=== PATIENT | female | born 1995 | race Caucasian/White ===

== ENCOUNTER 2020-07-13 22:28 | Inpatient (IN) | payer MEDICAID ==
[2020-07-14] MEDS ORDERED: Carboprost Tromethamine 250 MCG/1 ML Amp IM PRN ×2 (00:18)
[2020-07-14] MEDS ORDERED: Simethicone 80 MG Tab.Chew PO PRN (00:18)
[2020-07-14] MEDS ORDERED: Ondansetron 4 MG/2 ML SDV IVPUSH PRN (00:18)
[2020-07-14] MEDS ORDERED: Sodium Chloride 0.9% 10 ML Syringe FLUSH PRN (00:18)
[2020-07-14] MEDS ORDERED: Acetaminophen 325 MG Tab PO PRN (00:18)
[2020-07-14] MEDS ORDERED: Misoprostol 400 MCG (4 X 100 MCG TAB) RECTAL PRN ×2 (00:18)
[2020-07-14] MEDS ORDERED: Oxytocin 10 Units/1 ML SDV IM PRN (00:18)
[2020-07-14] MEDS ORDERED: Benzocaine/Menthol 20%-0.5% Spray 56 GM Canister TOP PRN (00:18)
[2020-07-14] MEDS ORDERED: Zolpidem 5 MG Tab PO PRN (00:18)
[2020-07-14] MEDS ORDERED: Lidocaine 1% 30 ML SDV INJECT PRN (00:18)
[2020-07-14] MEDS ORDERED: Tranexamic Acid 1,000 MG in Sodium Chloride 0.9% 100 ML IV PRN ×4 (00:18)
[2020-07-14] MEDS ORDERED: Lactated Ringers 1,000 ML IV ONE (00:18)
[2020-07-14] MEDS ORDERED: Methylergonovine 0.2 MG/1 ML Amp IM PRN (00:18)
[2020-07-14] MEDS ORDERED: Lactated Ringers 1,000 ML IV SCH (00:30)
[2020-07-14] MEDS ORDERED: Oxytocin/Normal Saline 30 UNIT/500 ML BAG IV SCH (00:30)
[2020-07-14 01:36] LABS: ANION GAP 13.7 mEq/L (7-13); CHLORIDE,CL 102 mmol/L (98-107); SODIUM,NA 136 mmol/L (136-145)
--- NOTE | 2020-07-14 03:12 | HP ---
CHIEF COMPLAINT: "I am in labor." HISTORY OF PRESENT ILLNESS: Ms. De La Vega is a 24-year-old 2, para 1-0- 0-1 female. Last menstrual period unsure. EDC 07/23/2020 by 2nd trimester ultrasound. EGA 38-4/7 weeks' gestation, who reports to Labor and Delivery at [facility] in [facility]. She has been latia every 2 to 3 minutes since 8 p.m. last night. She denies any vaginal bleeding, leakage of fluid. No nausea, vomiting, diarrhea. No fever or chills. No hematochezia, hematemesis, hematuria. No dysuria, frequency, urgency with urination. No leg pain, leg edema. Her only issue in , she did have hypertension. She was on some medication early in the , labetalol and then she was taken off as her blood pressures were doing so well. PAST MEDICAL HISTORY: Positive for anxiety, depression, hypertension. No thyroid disease, heart disease, seizure disorder, thromboembolic disorder, asthma, diabetes, or breast lesions. SOCIAL HISTORY: She is single. She denies any tobacco use, alcohol use, or illicit drug use. She denies any domestic violence issues. She feels safe at home. 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 FAMILY HISTORY: Positive for hypertension, thyroid disease, breast cancer. MEDICATIONS: vitamins, Zoloft 200 mg a day. She was on labetalol early in the , which was stopped last month. PAST SURGICAL HISTORY: None. OBSTETRICAL HISTORY: February 2016, delivery of a viable male at 40 weeks gestation via normal spontaneous vaginal delivery. ALLERGIES: No known drug allergies. REVIEW OF SYSTEMS: All pertinent positive and negative review of systems per HPI. All other systems reviewed are negative. A 10-point review of systems discussed with the patient. She has no issues. PHYSICAL EXAMINATION: General: Well-developed, well-nourished female, in no acute distress. Vital Signs: Stable, afebrile. Blood pressure is in the high 130s/90s. HEENT: Unremarkable. Neck: Supple. Without adenopathy. No thyromegaly. Lungs: Clear to auscultation. No wheezing, rhonchi, or rales noted. Cardiovascular: Regular rate and rhythm without murmurs. Abdomen: Gravid, nontender. Fundal height 38 cm. heart tones 130s to 140s. Contractions every 2 minutes. Vertex presentation. Cervix: 4 cm dilated, 80% effaced, -2 station. Bulging bag of sow. Artificial rupture of membranes with clear fluid noted. Back: No CVA tenderness. Extremities: No edema, erythema, or tenderness noted. LABORATORY DATA: Blood type O positive. Antibody screen negative, rubella positive, group B Strep negative, hepatitis B surface antigen negative, hepatitis C negative, HIV negative, syphilis nonreactive. ASSESSMENT: 1. 38-4/7 weeks' intrauterine . 2. History of chronic hypertension 3. Active labor. 4. Artificial rupture of membranes with clear fluid. PLAN: 1. Expect vaginal delivery. 2. All questions answered. 3. The patient can have IV pain medications or intrathecal if she desires. 4. I did order an a CBC, CMP, LDH, protein-creatinine ratio for baseline in case her blood pressures worsen through the delivery process. 5. All questions answered. [facility] /[id number] LYNDSAY
[2020-07-14] MEDS ORDERED: EPINEPHrine 1 MG/1 ML Amp ONE (09:02)
[2020-07-14] MEDS ORDERED: fentaNYL 100 MCG/2 ML SDV ONE (09:02)
[2020-07-14] MEDS ORDERED: Sodium Bicarbonate 4.2% 2.5 MEQ/5 ML SDV ONE (09:03)
--- NOTE | 2020-07-14 09:25 | PCM.SN.2 ---
- Free Text/Narrative Note: Intrathecal. Sitting position, sterile prep and drape. 1% lidocaine x 1 to L2 L3 interspace x1. 24 ga pencan x 1. Pos CSF, neg heme, neg parasthesia. 0.1 ml pf 1:1000 epi, 20 mcg pf sufenta, 30 mcg pf fentanyl, 0.4 ml pf NS and 6 mg of 0.75% pf marcaine injected after CSF aspiration. Pt to L lateral position. Procedure time 0905 to 0935
--- NOTE | 2020-07-14 09:50 | PCM.PNLD ---
Labor Progress Note - VS & Meds Vital Signs: Last Vital Signs Temp 96.3 F L 07/14/20 07:29 Pulse 98 07/14/20 07:29 Resp 16 07/14/20 05:35 BP 136/80 07/14/20 07:29 Pulse Ox Active Medications: Current Medications Acetaminophen (Tylenol) 650 mg PO Q4H PRN PRN Reason: Pain (Mild 1-3) and fever Acetaminophen (Tylenol) 650 mg PO Q6H PRN PRN Reason: mild pain or fever Benzocaine/Menthol (Dermoplast Pain Relief [place]) 0 gm TOP Q4H PRN PRN Reason: Perineal comfort measures Carboprost Tromethamine (Hemabate Ds) 250 mcg IM ASDIRECTED PRN PRN Reason: HEMORRHAGE Carboprost Tromethamine (Hemabate Ds) 250 mcg IM ASDIRECTED PRN PRN Reason: Excessive vaginal bleeding Docusate Sodium (Colace) 100 mg PO BID PRN PRN Reason: Constipation Tranexamic Acid 1,000 mg/ (Sodium Chloride) 110 mls @ 660 mls/hr IV ONETIME PRN PRN Reason: Bleeding Oxytocin/Sodium Chloride (Pitocin In Ns 30 Unit/500 Ml) 30 unit in 500 mls @ 2 mls/hr IV TITRATE MERRICK; Protocol Last Admin: 07/14/20 09:34 Dose: 2 munits/min, 2 mls/hr Documented by: Lactated Ringer's (Ringers, Lactated) 1,000 mls @ 125 mls/hr IV ASDIRECTED MERRICK Last Admin: 07/14/20 09:07 Dose: 125 mls/hr Documented by: Ibuprofen (Motrin) 800 mg PO Q8H PRN PRN Reason: Mild Pain or Fever Lidocaine HCl (Xylocaine-Mpf 1%) 30 ml INJECT ASDIRECTED PRN PRN Reason: Perineal Repair Methylergonovine Maleate (Methergine) 0.2 mg IM ASDIRECTED PRN PRN Reason: Hemorrhage Misoprostol (Cytotec) 800 mcg RECTAL ASDIRECTED PRN PRN Reason: Hemorrhage Misoprostol (Cytotec) 800 mcg RECTAL ONETIME PRN PRN Reason: Hemorrhage Ondansetron HCl (Zofran) 4 mg IVPUSH Q4H PRN PRN Reason: Nausea/Vomiting Last Admin: 07/14/20 09:00 Dose: 4 mg Documented by: Oxytocin (Pitocin) 10 unit IM ONETIME PRN PRN Reason: Bleeding Prenat Multivit/[place]/Iron/Folic Ac ( Plus Iron) 1 each PO DAILY MERRICK Simethicone (Simethicone) 80 mg PO Q4H PRN PRN Reason: Gas Sodium Chloride (Saline Flush) 10 ml FLUSH ASDIRECTED PRN PRN Reason: Keep Vein Open Witch Merle (Medi-Pads) 1 each TOP Q4HR PRN PRN Reason: Perineal Comfort Measure Zolpidem Tartrate (Ambien) 5 mg PO BEDTIME PRN PRN Reason: Insomnia Discontinued Medications Epinephrine HCl (Adrenalin) Confirm Administered Dose 1 mg .ROUTE .STK-MED ONE Stop: 07/14/20 09:03 Fentanyl (Sublimaze) Confirm Administered Dose 100 mcg .ROUTE .STK-MED ONE Stop: 07/14/20 09:03 Lactated Ringer's (Ringers, Lactated) 1,000 mls @ 125 mls/hr IV BOLUS ONE Stop: 07/14/20 08:17 Last Admin: 07/14/20 08:30 Dose: 125 mls/hr Documented by: Sodium Bicarbonate (Sodium Bicarbonate 4.2%) Confirm Administered Dose 2.5 meq .ROUTE .STK-MED ONE Stop: 07/14/20 09:04 Sufentanil Citrate (Sufenta) Confirm Administered Dose 50 mcg .ROUTE .STK-MED ONE Stop: 07/14/20 09:04 - Uterine Contractions Uterine Monitoring Mode: External [place] Contraction Frequency (min): 3-5 Contraction Duration (sec): 70-90 Contraction Intensity: Moderate Uterine Resting Tone: Soft - Monitoring Monitor Mode: External Ultrasound Heart Rate (FHR) Variability: Moderate (6-25 bmp) Accelerations: Present, 15x15 Decelerations: None Strip Review: Category I - Vaginal Exam Dilation (cm): 7 Effacement (Percent): 100 Station: -1 Cervical Position: Anterior Sterile Vaginal Exam Performed By: Rodrick Bentley - Labor Progress (Free Text) Labor Progress: Patient comfortable with intrathecal anesthesia FHT's 130's to 140's + acels. + Bloody show noted.
--- NOTE | 2020-07-14 11:10 | PCM.DEL ---
L & D Note - General Info Date of Service: 07/14/20 (1052) Mother's Due Date: 07/23/20 - Delivery Note Labor: Augmented by ARM, Augmented by Oxytocin Delivery Outcome: Livebirth Infant Delivery Method: Spontaneous Vaginal Delivery-Single Infant Delivery Mode: Spontaneous Presentation: Vertex Nuchal Cord: Present, Reduced Anesthesia Type: Intrathecal Amniotic Fluid Description: Clear Episiotomy Type: None Laceration: None Placenta: Intact, Spontaneous Cord: 3 Vessels Estimated Blood Loss: 100 Resuscitation Needed: No : Suctioned, Bulb Syringe, Stimulated, Warmed, Lamar Used, Warmer Used Provider: Rodrick Bentley Score 1 min: 6 Score 5 min: 8 Delivery Comments (Free Text/Narrative):: Viable female OA over intact perineum Cord 3 Vessel around the neck X 1 Placenta delivered by simple expression intact. Labia, vagina and cervix inspected and intact. Mother and infant in good condition. Viable female infant Weight- 8 lbs 3 oz Length- 19 1/2 's 6 and 8 at 1 minute and 5 minutes respectively. - General Info Date of Service: 07/14/20 () Functional Status: Reports: Pain Controlled, Tolerating Diet, Ambulating - Review of Systems General: Reports: No Symptoms HEENT: Reports: No Symptoms Pulmonary: Reports: No Symptoms Cardiovascular: Reports: No Symptoms Gastrointestinal: Reports: No Symptoms Genitourinary: Reports: No Symptoms Musculoskeletal: Reports: No Symptoms Skin: Reports: No Symptoms Neurological: Reports: No Symptoms Psychiatric: Reports: No Symptoms - Patient Data Vitals - Most Recent: Last Vital Signs Temp 96.3 F L 07/14/20 07:29 Pulse 98 07/14/20 07:29 Resp 16 07/14/20 05:35 BP 136/80 07/14/20 07:29 Pulse Ox Weight - Most Recent: 216 lb Lab Results Last 24 Hours: Laboratory Results - last 24 hr 07/14/20 07/14/20 07/14/20 Range/Units 00:20 00:45 00:50 WBC 10.9 H (5.0-10.0) 10^3/uL RBC 4.05 L (4.2-5.4) 10^6/uL Hgb 12.3 (12.0-16.0) g/dL Hct 35.7 L (37.0-47.0) % MCV 88.1 (80-100) fL MCH 30.4 (27.0-34.0) pg MCHC 34.5 (33.0-35.0) g/dL Plt Count 161 (150-450) 10^3/uL Sodium (136-145) mmol/L Potassium (3.5-5.1) mmol/L Chloride (98-107) mmol/L Carbon Dioxide (21-32) mmol/L Anion Gap (7-13) mEq/L BUN (7-18) mg/dL Creatinine (0.55-1.02) mg/dL Est Cr Clr Drug Dosing mL/min Estimated GFR (MDRD) BUN/Creatinine Ratio (No establ ref range) Glucose (74-99) mg/dL Calcium (8.5-10.1) mg/dL Total Bilirubin (0.2-1.0) mg/dL AST (15-37) U/L ALT (14-59) U/L Alkaline Phosphatase (46-116) U/L Lactate Dehydrogenase (81-234) U/L Total Protein (6.4-8.2) g/dL Albumin (3.4-5.0) g/dL Globulin Albumin/Globulin Ratio Ur Random Creatinine 201.59 (No establ ref range) mg/dL U Random Total Protein 36.2 H (0.0-11.9) mg/dL Protein/Creatinin Ratio 179.6 H (<150.0) mg/g COVID-19 (LUIS FERNANDO) Negative (NEGATIVE) 07/14/20 Range/Units 00:50 WBC (5.0-10.0) 10^3/uL RBC (4.2-5.4) 10^6/uL Hgb (12.0-16.0) g/dL Hct (37.0-47.0) % MCV (80-100) fL MCH (27.0-34.0) pg MCHC (33.0-35.0) g/dL Plt Count (150-450) 10^3/uL Sodium 136 (136-145) mmol/L Potassium 3.7 (3.5-5.1) mmol/L Chloride 102 (98-107) mmol/L Carbon Dioxide 24 (21-32) mmol/L Anion Gap 13.7 H (7-13) mEq/L BUN 8 (7-18) mg/dL Creatinine 0.88 (0.55-1.02) mg/dL Est Cr Clr Drug Dosing 102.13 mL/min Estimated GFR (MDRD) > 60 BUN/Creatinine Ratio 9.1 (No establ ref range) Glucose 80 (74-99) mg/dL Calcium 8.5 (8.5-10.1) mg/dL Total Bilirubin 0.3 (0.2-1.0) mg/dL AST 14 L (15-37) U/L ALT 16 (14-59) U/L Alkaline Phosphatase 168 H (46-116) U/L Lactate Dehydrogenase 133 (81-234) U/L Total Protein 6.8 (6.4-8.2) g/dL Albumin 2.8 L (3.4-5.0) g/dL Globulin 4.0 Albumin/Globulin Ratio 0.70 Ur Random Creatinine (No establ ref range) mg/dL U Random Total Protein (0.0-11.9) mg/dL Protein/Creatinin Ratio (<150.0) mg/g COVID-19 (LUIS FERNANDO) (NEGATIVE) Med Orders - Current: Current Medications Acetaminophen (Tylenol) 650 mg PO Q4H PRN PRN Reason: Pain (Mild 1-3) and fever Acetaminophen (Tylenol) 650 mg PO Q6H PRN PRN Reason: mild pain or fever Benzocaine/Menthol (Dermoplast Pain Relief [place]) 0 gm TOP Q4H PRN PRN Reason: Perineal comfort measures Carboprost Tromethamine (Hemabate Ds) 250 mcg IM ASDIRECTED PRN PRN Reason: HEMORRHAGE Carboprost Tromethamine (Hemabate Ds) 250 mcg IM ASDIRECTED PRN PRN Reason: Excessive vaginal bleeding Docusate Sodium (Colace) 100 mg PO BID PRN PRN Reason: Constipation Tranexamic Acid 1,000 mg/ (Sodium Chloride) 110 mls @ 660 mls/hr IV ONETIME PRN PRN Reason: Bleeding Oxytocin/Sodium Chloride (Pitocin In Ns 30 Unit/500 Ml) 30 unit in 500 mls @ 2 mls/hr IV TITRATE MERRICK; Protocol Last Admin: 07/14/20 09:34 Dose: 2 munits/min, 2 mls/hr Documented by: Lactated Ringer's (Ringers, Lactated) 1,000 mls @ 125 mls/hr IV ASDIRECTED MERRICK Last Admin: 07/14/20 09:07 Dose: 125 mls/hr Documented by: Ibuprofen (Motrin) 800 mg PO Q8H PRN PRN Reason: Mild Pain or Fever Lidocaine HCl (Xylocaine-Mpf 1%) 30 ml INJECT ASDIRECTED PRN PRN Reason: Perineal Repair Methylergonovine Maleate (Methergine) 0.2 mg IM ASDIRECTED PRN PRN Reason: Hemorrhage Misoprostol (Cytotec) 800 mcg RECTAL ASDIRECTED PRN PRN Reason: Hemorrhage Misoprostol (Cytotec) 800 mcg RECTAL ONETIME PRN PRN Reason: Hemorrhage Ondansetron HCl (Zofran) 4 mg IVPUSH Q4H PRN PRN Reason: Nausea/Vomiting Last Admin: 07/14/20 09:00 Dose: 4 mg Documented by: Oxytocin (Pitocin) 10 unit IM ONETIME PRN PRN Reason: Bleeding Prenat Multivit/[place]/Iron/Folic Ac ( Plus Iron) 1 each PO DAILY [facility] Simethicone (Simethicone) 80 mg PO Q4H PRN PRN Reason: Gas Sodium Chloride (Saline Flush) 10 ml FLUSH ASDIRECTED PRN PRN Reason: Keep Vein Open Witch Merle (Medi-Pads) 1 each TOP Q4HR PRN PRN Reason: Perineal Comfort Measure Zolpidem Tartrate (Ambien) 5 mg PO BEDTIME PRN PRN Reason: Insomnia Discontinued Medications Epinephrine HCl (Adrenalin) Confirm Administered Dose 1 mg .ROUTE .STK-MED ONE Stop: 07/14/20 09:03 Fentanyl (Sublimaze) Confirm Administered Dose 100 mcg .ROUTE .STK-MED ONE Stop: 07/14/20 09:03 Lactated Ringer's (Ringers, Lactated) 1,000 mls @ 125 mls/hr IV BOLUS ONE Stop: 07/14/20 08:17 Last Admin: 07/14/20 08:30 Dose: 125 mls/hr Documented by: Sodium Bicarbonate (Sodium Bicarbonate 4.2%) Confirm Administered Dose 2.5 meq .ROUTE .STK-MED ONE Stop: 07/14/20 09:04 Sufentanil Citrate (Sufenta) Confirm Administered Dose 50 mcg .ROUTE .STK-MED ONE Stop: 07/14/20 09:04 - Exam General: Alert, Oriented, Cooperative HEENT: Pupils Equal, Pupils Reactive Neck: Supple Lungs: Clear to Auscultation, Normal Respiratory Effort Cardiovascular: Regular Rate, Regular Rhythm GI/Abdominal Exam: Normal Bowel Sounds Psy/Mental Status: Alert, Normal Affect, Normal Mood - Problem List Review Problem List Initiated/Reviewed/Updated: Yes - My Orders Last 24 Hours: My Active Orders 07/14/20 00:18 Acetaminophen [TylenoL] 650 mg PO Q4H PRN Acetaminophen [TylenoL] 650 mg PO Q6H PRN Benzocaine/Menthol [Dermoplast Pain Relief [place]] See Dose Instructions TOP Q4H PRN Carboprost Tromethamine [Hemabate DS] 250 mcg IM ASDIRECTED PRN Carboprost Tromethamine [Hemabate DS] 250 mcg IM ASDIRECTED PRN Docusate Sodium [Colace] 100 mg PO BID PRN Ibuprofen [Motrin] 800 mg PO Q8H PRN Lidocaine 1% [Xylocaine-MPF 1%] 30 ml INJECT ASDIRECTED PRN Methylergonovine [Methergine] 0.2 mg IM ASDIRECTED PRN Ondansetron [Zofran] 4 mg IVPUSH Q4H PRN Oxytocin [Pitocin] 10 unit IM ONETIME PRN Simethicone 80 mg PO Q4H PRN Sodium Chloride 0.9% [Saline Flush] 10 ml FLUSH ASDIRECTED PRN Tranexamic Acid [Cyklokapron] 1,000 mg Sodium Chloride 0.9% [Normal Saline] 100 ml IV ONETIME Zolpidem [Ambien] 5 mg PO BEDTIME PRN miSOPROStoL [Cytotec] 800 mcg RECTAL ASDIRECTED PRN miSOPROStoL [Cytotec] 800 mcg RECTAL ONETIME PRN witch Merle [Medi-Pads] 1 each TOP Q4HR PRN Resuscitation Status Routine 07/14/20 00:19 Patient Status [ADT] Routine Communication Order [RC] ASDIRECTED Notify Provider Vital Signs OB [RC] ASDIRECTED Notify Provider [RC] PRN Up ad Kristi [RC] ASDIRECTED Vital Signs [RC] , Assess Lochia [WOMSER] Per Unit Routine Assess Uterine Involution [WOMSER] Per Unit Routine Breast Pump [WOMSER] Per Unit Routine Ice Therapy [OM.PC] Per Unit Routine Perineal Care [OM.PC] Per Unit Routine Saline Lock Insert [OM.PC] Routine Saline Lock Insert [OM.PC] Urgent Sitz Bath [OM.PC] Per Unit Routine 07/14/20 00:22 Pump Management, Intrathecal [RC] ASDIRECTED 07/14/20 00:30 Lactated Ringers [Ringers, Lactated] 1,000 ml IV ASDIRECTED Oxytocin/Normal Saline [Pitocin in NS 30 UNIT/500 ML] 30 unit in 500 ml IV TITRATE 07/14/20 Breakfast Regular Diet [DIET] 07/14/20 09:00 Vit with Ca/FA/Iron [ Plus Iron] 1 each PO DAILY 07/14/20 Lunch Regular Diet [DIET] 07/14/20 Dinner Regular Diet [DIET] 07/15/20 06:00 CBC W/O DIFF,HEMOGRAM [HEME] Routine
[2020-07-14] MEDS: Prenatal Multivitamin with Calcium/Folic Acid/Iron Tab PO SCH (15:34)
[2020-07-14] MEDS: Ibuprofen 800 MG Tab PO PRN (18:22)
[2020-07-14] MEDS: Docusate Sodium 100 MG Cap PO PRN (21:30)
[2020-07-14] MEDS: Acetaminophen 325 MG Tab PO PRN (21:30)
[2020-07-15] MEDS: Ibuprofen 800 MG Tab PO PRN (02:34)
--- NOTE | 2020-07-15 08:32 | PCM.PNPP ---
- General Info Date of Service: 07/15/20 (PPD#1 S/P ) Functional Status: Reports: Pain Controlled, Tolerating Diet, Ambulating, Urinating - Review of Systems General: Reports: No Symptoms HEENT: Reports: No Symptoms Pulmonary: Reports: No Symptoms Cardiovascular: Reports: No Symptoms Gastrointestinal: Reports: No Symptoms Genitourinary: Reports: No Symptoms Musculoskeletal: Reports: No Symptoms Skin: Reports: No Symptoms Neurological: Reports: No Symptoms Psychiatric: Reports: No Symptoms - General Info Date of Service: 07/15/20 (PPD # 1 ) - Patient Data Vital Signs - Most Recent: Last Vital Signs Temp 98.4 F 07/14/20 20:00 Pulse 93 07/14/20 20:00 Resp 18 07/14/20 20:00 BP 136/84 07/14/20 20:00 Pulse Ox 100 07/14/20 20:00 Weight - Most Recent: 216 lb Lab Results - Last 24 Hours: Laboratory Results - last 24 hr 07/15/20 Range/Units 07:56 WBC 9.3 (5.0-10.0) 10^3/uL RBC 3.33 L (4.2-5.4) 10^6/uL Hgb 10.2 L D (12.0-16.0) g/dL Hct 30.2 L (37.0-47.0) % MCV 90.7 (80-100) fL MCH 30.6 (27.0-34.0) pg MCHC 33.8 (33.0-35.0) g/dL Plt Count 140 L (150-450) 10^3/uL Med Orders - Current: Current Medications Acetaminophen (Tylenol) 650 mg PO Q4H PRN PRN Reason: Pain (Mild 1-3) and fever Last Admin: 07/14/20 21:30 Dose: 650 mg Documented by: Acetaminophen (Tylenol) 650 mg PO Q6H PRN PRN Reason: mild pain or fever Benzocaine/Menthol (Dermoplast Pain Relief [place]) 0 gm TOP Q4H PRN PRN Reason: Perineal comfort measures Carboprost Tromethamine (Hemabate Ds) 250 mcg IM ASDIRECTED PRN PRN Reason: HEMORRHAGE Carboprost Tromethamine (Hemabate Ds) 250 mcg IM ASDIRECTED PRN PRN Reason: Excessive vaginal bleeding Docusate Sodium (Colace) 100 mg PO BID PRN PRN Reason: Constipation Last Admin: 07/14/20 21:30 Dose: 100 mg Documented by: Tranexamic Acid 1,000 mg/ (Sodium Chloride) 110 mls @ 660 mls/hr IV ONETIME PRN PRN Reason: Bleeding Oxytocin/Sodium Chloride (Pitocin In Ns 30 Unit/500 Ml) 30 unit in 500 mls @ 2 mls/hr IV TITRATE MERRICK; Protocol Last Titration: 07/14/20 13:00 Dose: Infused Documented by: Lactated Ringer's (Ringers, Lactated) 1,000 mls @ 125 mls/hr IV ASDIRECTED MERRICK Last Infusion: 07/14/20 13:00 Dose: 0 mls/hr Documented by: Ibuprofen (Motrin) 800 mg PO Q8H PRN PRN Reason: Mild Pain or Fever Last Admin: 07/15/20 02:34 Dose: 800 mg Documented by: Lidocaine HCl (Xylocaine-Mpf 1%) 30 ml INJECT ASDIRECTED PRN PRN Reason: Perineal Repair Methylergonovine Maleate (Methergine) 0.2 mg IM ASDIRECTED PRN PRN Reason: Hemorrhage Misoprostol (Cytotec) 800 mcg RECTAL ASDIRECTED PRN PRN Reason: Hemorrhage Misoprostol (Cytotec) 800 mcg RECTAL ONETIME PRN PRN Reason: Hemorrhage Ondansetron HCl (Zofran) 4 mg IVPUSH Q4H PRN PRN Reason: Nausea/Vomiting Last Admin: 07/14/20 09:00 Dose: 4 mg Documented by: Oxytocin (Pitocin) 10 unit IM ONETIME PRN PRN Reason: Bleeding Prenat Multivit/[place]/Iron/Folic Ac ( Plus Iron) 1 each PO DAILY MERRICK Last Admin: 07/14/20 15:34 Dose: Not Given Documented by: Simethicone (Simethicone) 80 mg PO Q4H PRN PRN Reason: Gas Sodium Chloride (Saline Flush) 10 ml FLUSH ASDIRECTED PRN PRN Reason: Keep Vein Open Witch [place] (Medi-Pads) 1 each TOP Q4HR PRN PRN Reason: Perineal Comfort Measure Zolpidem Tartrate (Ambien) 5 mg PO BEDTIME PRN PRN Reason: Insomnia Discontinued Medications Epinephrine HCl (Adrenalin) Confirm Administered Dose 1 mg .ROUTE .STK-MED ONE Stop: 07/14/20 09:03 Last Admin: 07/14/20 15:33 Dose: Not Given Documented by: Fentanyl (Sublimaze) Confirm Administered Dose 100 mcg .ROUTE .STK-MED ONE Stop: 07/14/20 09:03 Last Admin: 07/14/20 15:33 Dose: Not Given Documented by: Lactated Ringer's (Ringers, Lactated) 1,000 mls @ 125 mls/hr IV BOLUS ONE Stop: 07/14/20 08:17 Last Admin: 07/14/20 08:30 Dose: 125 mls/hr Documented by: Sodium Bicarbonate (Sodium Bicarbonate 4.2%) Confirm Administered Dose 2.5 meq .ROUTE .STK-MED ONE Stop: 07/14/20 09:04 Last Admin: 07/14/20 15:33 Dose: Not Given Documented by: Sufentanil Citrate (Sufenta) Confirm Administered Dose 50 mcg .ROUTE .STK-MED ONE Stop: 07/14/20 09:04 Last Admin: 07/14/20 15:34 Dose: Not Given Documented by: - Infant Interaction Infant Disposition, : [place] in Room with Family Interaction: Holding Infant Infant Feeding: Attempted ; Nursed Fair/Poor, Continues to Breastfeed Support Person: Significant Other - Recovery Exam Fundal Tone: Firm Fundal Level: At Umbilicus Fundal Placement: Midline Lochia Amount: Small Lochia Color: [place]ra/Red Perineum Description: Intact, Minimal Bruising/Swelling Episiotomy/Laceration: None Bladder Status: Voiding - Exam General: Alert, Oriented, Cooperative HEENT: Pupils Equal, Pupils Reactive, Mucous Membr. Moist/[place] Neck: Supple Lungs: Clear to Auscultation, Normal Respiratory Effort Cardiovascular: Regular Rate, Regular Rhythm, No Murmurs GI/Abdominal Exam: Normal Bowel Sounds, Soft, Non-Tender Extremities: Normal Inspection, Normal Range of Motion, Non-Tender, No Pedal Edema Skin: Warm, Dry, Intact Neurological: No New Focal Deficit, Normal Gait, Normal Speech, Normal Tone Psy/Mental Status: Alert, Normal Affect, Normal Mood - Problem List Review Problem List Initiated/Reviewed/Updated: Yes - My Orders Last 24 Hours: My Active Orders 07/14/20 09:00 Vit with Ca/FA/Iron [ Plus Iron] 1 each PO DAILY 07/14/20 Lunch Regular Diet [DIET] 07/14/20 Dinner Regular Diet [DIET] 07/15/20 08:25 Ready for Discharge [RC] PER UNIT ROUTINE - Assessment Assessment:: PPD # 1 S/P Doing well Acute anemia secondary to blood loss. - Plan Plan:: Discharge to home Follow-up with Dr. Goyal for check. Ibuprofen/Tylenol for pain as needed. PNV and Iron daily.
[2020-07-15] MEDS: Prenatal Multivitamin with Calcium/Folic Acid/Iron Tab PO SCH (09:01)
[2020-07-15] MEDS: Docusate Sodium 100 MG Cap PO PRN (09:02)
[2020-07-15] MEDS: Acetaminophen 325 MG Tab PO PRN (09:02)
--- NOTE | 2020-07-15 12:06 | DISCH ---
INDICATION FOR ADMISSION: Ms. De La Vega is a 24-year-old, 2, para 1-0-0- 1 female at 38 and 4/7 weeks gestation, who reported to Labor and Delivery with increasing force and frequency of contractions. She did quite well throughout her labor process. When she was 4 cm dilated with bulging bag of sow, artificial rupture of membranes occurred with clear fluid. She tolerated the rest of her labor quite well. Once she got uncomfortable, intrathecal anesthesia was placed. Once she got to complete, she started pushing and she had a normal spontaneous vaginal delivery of a viable female infant over an intact perineum. The cord was 3-vessel and was around the neck x1. Placenta was delivered by simple expression intact. The labia, vagina and cervix were inspected and intact with a viable female weighing 8 pounds 3 ounces, 19.5 inches long with score of 6 at one minute, 8 at five minutes. She recovered without difficulty. She had no complications throughout her hospital stay. She was afebrile. Vital signs are stable. She tolerated her diet well and ambulated quite well. She had minimal lochia. No other complications occurred throughout her hospital stay. She was discharged to home on day #1. LABORATORY AND DIAGNOSTIC STUDIES: 07/14/2020, WBC 10.9, hemoglobin 12.3, hematocrit 35.7, platelet count 161,000. CMP was normal. Protein-creatinine ratio normal. COVID-19 testing negative. 07/15/2020, WBC 9.3, hemoglobin 10.2, hematocrit 30.2, platelet count 140,000. DISCHARGE INSTRUCTIONS: 1. Discharge to home. 2. Follow up with Dr. Goyal for recheck. 3. Ibuprofen 800 mg 1 tablet t.i.d. p.r.n. for pain. 4. Tylenol p.r.n. for pain. 5. vitamin and iron daily. 6. No douching, tampons, or intercourse for 6 weeks. DISCHARGE INSTRUCTIONS: Including activity, followup, medications, diet were discussed with the patient, she understood these and is willing to comply with these. DISCHARGE DIAGNOSES: 1. 38 and 4/7 weeks intrauterine . 2. History of chronic hypertension that improved throughout her and she did not need any antihypertensives at the end of the . 3. Active labor. 4. Artificial rupture of membranes with clear fluid. 5. Pitocin augmentation. 6. Normal spontaneous vaginal delivery of a viable female weighing 8 pounds 3 ounces, 19.5 inches long with score of 6 at one minute, 8 at five minutes. 7. Nuchal cord loosely around the neck x1. 8. Intrathecal anesthesia. 9. Acute anemia secondary to blood loss. [facility] /[id number]
== END 2020-07-15 13:30 | disposition home or self-care (01) | DRG 806 ==
LOC: DL.OB 22:28 → DL.OBCHECK 22:28 → UNDOADMOB 22:28 → EDSTATUS 22:52 → DL.OB 07-14 00:19 → OBSVTOIN 07-14 10:52
PROVIDERS: ADMIT Obstetrics & Gynecology; ATTEND Obstetrics & Gynecology
PROC: 10E0XZZ Delivery of Products of Conception, External Approach (ICD-10-PCS; principal; 2020-07-14)
PROC: 10907ZC Drainage of Amniotic Fluid, Therapeutic from Products of Conception, Via Natural or Artificial Opening (ICD-10-PCS; 2020-07-14)
PROC: 3E0R3BZ Introduction of Anesthetic Agent into Spinal Canal, Percutaneous Approach (ICD-10-PCS; 2020-07-14)
DX: O69.81X0 Labor and delivery complicated by cord around neck, without compression, not applicable or unspecified (principal); D62 Acute posthemorrhagic anemia; Z37.0 Single live birth; Z3A.38 38 weeks gestation of pregnancy; O90.81 Anemia of the puerperium; O99.344 Other mental disorders complicating childbirth; F41.9 Anxiety disorder, unspecified; F32.9 Major depressive disorder, single episode, unspecified; Z20.828 Contact with and (suspected) exposure to other viral communicable diseases
CPT/HCPCS: 01967; 36415; 59409; 80053; 82570; 83615; 84156; 85027; A9270-GY; J2405; J2590; J7120; U0002